=== PATIENT | female | born 1930 | race Caucasian/White ===

== ENCOUNTER → 2016-12-10 | Outpatient (CLI) | payer MEDICARE, BC ==
--- NOTE | 2016-12-10 14:01 | MM ---
Reason for exam: additional evaluation requested from prior study. Last mammogram was performed 1 year ago. History: Patient is postmenopausal, has history of breast cancer at age 69, and history of other cancer. Family history of breast cancer in 3 maternal aunts and breast cancer in 2 paternal aunts. Malignant excisional biopsy of the left breast, May 08, 1999. Excisional biopsy of the left breast. 2 excisional biopsies of the right breast. Lumpectomy of the left breast. Radiation therapy of the left breast. Took estrogen for 12 years beginning at age 57. Took antineoplastic for 5 years beginning at age 69. Physical Findings: Nurse did not find any significant physical abnormalities on exam. MG 3D Diag Mammo W/Cad [facility]EN Bilateral CC and MLO view(s) were taken. Prior study comparison: December 08, 2015, bilateral MG 3d diag mammo w/cad [facility]EN. November 18, 2014, bilateral MG diagnostic mammo w CAD [facility]IDEN. The breast tissue is heterogeneously dense. This may lower the sensitivity of mammography. Benign calcifications. Stable post operative distortion. No significant new findings when compared with previous films. These results were verbally communicated with the patient and result sheet given to the patient on 12/10/16. ASSESSMENT: Benign, BI-RAD 2 RECOMMENDATION: Follow-up diagnostic mammogram of both breasts in 1 year.
== END | disposition home or self-care (01) ==
LOC: RADMAMWWP 12:22
PROVIDERS: ATTEND Internal Medicine
DX: Z08 Encounter for follow-up examination after completed treatment for malignant neoplasm (principal); Z85.3 Personal history of malignant neoplasm of breast; Z80.3 Family history of malignant neoplasm of breast
CPT/HCPCS: G0204; G0279

== ENCOUNTER → 2018-03-12 | Outpatient (CLI) | payer MEDICARE, BC ==
--- NOTE | 2018-03-13 14:41 | MM ---
Reason for exam: additional evaluation requested from prior study. Last mammogram was performed 1 year and 3 months ago. History: Patient is postmenopausal, has history of endometrial cancer at age 81, has history of breast cancer at age 69, and history of other cancer. Family history of breast cancer in 3 maternal aunts and breast cancer in 2 paternal aunts. Malignant excisional biopsy of the left breast, May 08, 1999. Excisional biopsy of the left breast. 2 excisional biopsies of the right breast. Lumpectomy of the left breast. Radiation therapy of the left breast. Took estrogen for 12 years beginning at age 57. Took antineoplastic for 5 years beginning at age 69. Physical Findings: Nurse did not find any significant physical abnormalities on exam. MG 3D Diag Mammo W/Cad KAIDEN Bilateral CC and MLO view(s) were taken. Prior study comparison: December 10, 2016, bilateral MG 3d diag mammo w/cad [facility]. December 08, 2015, bilateral MG 3d diag mammo w/cad K[facility]EN. November 18, 2014, bilateral MG diagnostic mammo w CAD K[facility]IDEN. The breast tissue is heterogeneously dense. This may lower the sensitivity of mammography. There is a left lower inner quadrant mass at middle depth with evolving calcifications. There are benign appearing bilateral calcifications. Post therapy changes bilateral. These results were verbally communicated with the patient and result sheet given to the patient on 03/12/18. ASSESSMENT: Incomplete: need additional imaging evaluation, BI-RAD 0 RECOMMENDATION: Ultrasound of the left breast. Left inner quadrant.
--- NOTE | 2018-03-13 14:48 | USB ---
Reason for exam: additional evaluation requested from abnormal screening. History: Patient is postmenopausal, has history of endometrial cancer at age 81, has history of breast cancer at age 69, and history of other cancer. Family history of breast cancer in 3 maternal aunts and breast cancer in 2 paternal aunts. Malignant excisional biopsy of the left breast, May 08, 1999. Excisional biopsy of the left breast. 2 excisional biopsies of the right breast. Lumpectomy of the left breast. Radiation therapy of the left breast. Took estrogen for 12 years beginning at age 57. Took antineoplastic for 5 years beginning at age 69. US Breast Limited LT Left limited breast ultrasound including focal area of concern, retroareolar and axilla demonstrates no cystic or solid lesion seen. Increased calcifications in the lower inner quadrant at anterior middle depth are present, with no sonographic mass. Stereo biopsy recommended. These results were verbally communicated with the patient and result sheet given to the patient on 03/12/18. ASSESSMENT: Suspicious, BI-RAD 4 RECOMMENDATION: Stereotactic core biopsy of the left breast. Called with mammographic findings and has scheduled an appointment for the patient for 03/27/18 at 11:[address] Baxter. Biopsy scheduled for 03/20/18 at 10:00. PRELIMINARY REPORT CALLED AND FAXED TO DR. BAXTER ON 03/13/18.
== END | disposition home or self-care (01) ==
LOC: RADMAMWWP 13:23
PROVIDERS: ATTEND Internal Medicine
DX: Z08 Encounter for follow-up examination after completed treatment for malignant neoplasm (principal); R92.8 Other abnormal and inconclusive findings on diagnostic imaging of breast; Z85.3 Personal history of malignant neoplasm of breast
CPT/HCPCS: 77066; 76642; G0279; 77062

== ENCOUNTER → 2018-03-20 | Day surgery (SDC) | payer MEDICARE, BC ==
[2018-03-20 09:43] VITALS: RESP 16; BMI 29.7
[2018-03-20 10:51] VITALS: BP 137/76; PULSE 70; TEMP 97.9
--- NOTE | 2018-03-20 11:34 | MM ---
EXAMINATION TYPE: MG stereo VAD BX LT DATE OF EXAM: 03/20/2018 COMPARISON: Prior 3-D mammogram March 12, 2018 and older studies. CLINICAL HISTORY: Abnormal mammogram TECHNIQUE: Stereotactic guided core biopsy of left breast. FINDINGS: The procedure of stereotactic guided core biopsy was explained to the patient. Benefits, a lternatives, and risks were discussed. An informed consent was then obtained. [facility]. Shortness pathway was medial approach. I performed the localization, then performed the remainder of the procedure. Lidocaine with bicarbonate is used as a nesthetic into the skin. Lidocaine with epinephrine is used as anesthetic into the deeper tissue. A v acSueEasy assisted biopsy gun was used to obtain multiple core samples. The patient tolerated the procedure well without any immediate complication. The patient was kept in the radiology department for short stay after the procedure and then discharged home in stable condi tion. Targeted calcifications and nodule are identified in specimen mammogram. Post biopsy mammogra m shows the clip to appear in satisfactory position relative to the targeted area of concern on the p reprocedure images. Prior visualized partially calcified oval nodule is not present. IMPRESSION: SUCCESSFUL, UNCOMPLICATED STEREOTACTIC GUIDED CORE BIOPSY OF AREA OF CONCERN IN THE LEFT BREAST, FULL PATHOLOGY RESULTS TO FOLLOW. Low to intermediate index of suspicion noted at time of procedure.
== END ==
LOC: RADMAMWWP 09:03
PROVIDERS: ATTEND Internal Medicine
DX: D24.2 Benign neoplasm of left breast (principal); N60.92 Unspecified benign mammary dysplasia of left breast
CPT/HCPCS: 88305; 19081; A4648; J2001

== ENCOUNTER → 2018-10-13 | Outpatient (CLI) | payer MEDICARE, BC ==
--- NOTE | 2018-10-13 11:53 | MM ---
Reason for exam: follow-up at short interval from prior study. Last mammogram was performed 7 months ago. History: Patient is postmenopausal, has history of endometrial cancer at age 81, has history of breast cancer at age 69, and history of other cancer. Family history of breast cancer in 3 maternal aunts and breast cancer in 2 paternal aunts. Benign MG stereo VAD BX LT of the left breast, March 20, 2018. Malignant excisional biopsy of the left breast, May 08, 1999. Excisional biopsy of the left breast. 2 excisional biopsies of the right breast. Lumpectomy of the left breast. Radiation therapy of the left breast. Took estrogen for 12 years beginning at age 57. Took antineoplastic for 5 years beginning at age 69. Physical Findings: Nurse did not find any significant physical abnormalities on exam. MG 3D Diag Mammo W/Cad LT CC and MLO view(s) were taken of the left breast. Prior study comparison: March 12, 2018, bilateral MG 3d diag mammo w/cad [facility]EN. December 10, 2016, bilateral MG 3d diag mammo w/cad K[facility]. The breast tissue is heterogeneously dense. This may lower the sensitivity of mammography. Benign calcifications in the left breast. Post therapy change on the left. Left biopsy marker. These results were verbally communicated with the patient and result sheet given to the patient on 10/13/18. ASSESSMENT: Benign, BI-RAD 2 RECOMMENDATION: Follow-up diagnostic mammogram of both breasts in 1 year.
== END ==
LOC: RADMAMWWP 10:19
PROVIDERS: ATTEND Internal Medicine
DX: R92.8 Other abnormal and inconclusive findings on diagnostic imaging of breast (principal)
CPT/HCPCS: 77065; G0279; 77061